=== PATIENT | male | born 1985 | race Caucasian/White ===

== ENCOUNTER 2016-07-28 19:07 | Inpatient (IN) | payer SELFPAY ==
[~2016-07-28] VITALS: Ht 182.9 cm; Wt 84.0 kg
[~2016-07-28 19:07] MED LIST: BUPR-197 PO; CHLO10 PO; HYDR-3535 PO; LEXA20TA PO; TRAZ100 PO; TRAZ100T4 PO; ZYPR10TA9 PO
[2016-07-28] MEDS ORDERED: SODIUM CHLOR 0.9% 1000 ML INJ 1,000 ML IV SCH (19:14)
[2016-07-28 19:15] VITALS: BP 122/68; PULSE 86; TEMP 97.9; O2SAT 100
[2016-07-28] MEDS ORDERED: LORazepam 2 MG/ML VIAL IV PUSH ONE ×2 (19:15→21:45)
[2016-07-28 19:22] VITALS: O2SAT 98
--- NOTE | 2016-07-28 19:39 | RADRPT ---
EXAM DATE/TIME: 07/28/2016 19:30 [place] COMPARISON: No previous studies available for comparison. INDICATIONS : Chest pain and shortness of breath. MEDICAL HISTORY : None. SURGICAL HISTORY : None. ENCOUNTER: Initial ACUITY: 1 day PAIN SCORE: 3/10 LOCATION: Bilateral chest FINDINGS: A single view of the chest demonstrates the lungs to be symmetrically aerated without evidence of mas s, infiltrate or effusion. The cardiomediastinal contours are unremarkable. Osseous structures are intact. CONCLUSION: No evidence of acute cardiopulmonary disease. Miguel Noe MD on July 28, 2016 at 19:37 Board Certified Radiologist. This report was verified electronically.
[2016-07-28 19:43] LABS: AUTOMATED NEUTROPHIL # 5.7 TH/MM3 (1.8-7.7); BASOPHIL % 0.4 % (0.0-2.0); HEMO FLAGS DIFF FINAL; LYMPH % 22.8 % (9.0-44.0); LYMPHOCYTE # 1.9 TH/MM3 (1.0-4.8); MEAN CELL VOLUME 91.7 FL (80.0-100.0); MEAN CORPUSCULAR HEMOGLOBIN 31.8 PG (27.0-34.0); MEAN CORPUSCULAR HGB CONC 34.7 % (32.0-36.0); MONO % 8.8 % (0.0-8.0); PLATELET COUNT 238 TH/MM3 (150-450); RED BLOOD COUNT 4.48 MIL/MM3 (4.50-5.90); RED CELL DISTRIBUTION WIDTH 12.8 % (11.6-17.2); WHITE BLOOD COUNT 8.4 TH/MM3 (4.0-11.0)
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
[2016-07-28 20:09] LABS: ANION GAP 10 MEQ/L (5-15); BICARBONATE 23.3 MEQ/L (21.0-32.0); BLOOD UREA NITROGEN 16 MG/DL (7-18); CHLORIDE 106 MEQ/L (98-107); GLOMERULAR FILTRATION RATE 71 ML/MIN (>89); MAGNESIUM 2.2 MG/DL (1.5-2.5); POTASSIUM 3.8 MEQ/L (3.5-5.1); SODIUM (NA) 139 MEQ/L (136-145)
[2016-07-28 20:14] LABS: CREATINE KINASE 196 U/L (39-308)
[2016-07-28 20:41] LABS: CKMB 1.1 NG/ML (0.5-3.6)
[2016-07-28 21:25] LABS: AMPHETAMINE, URINE NEG (NEG); BARBITURATES, URINE NEG (NEG); COCAINE, URINE POS (NEG)
[2016-07-29] MEDS ORDERED: LORazepam 2 MG/ML VIAL IV PUSH ONE (02:00)
[2016-07-29 08:30] VITALS: BP 113/56; PULSE 52; RESP 16; O2SAT 97
--- NOTE | 2016-07-29 10:07 | EKG ---
Date Performed: 07/28/2016 Time Performed: 19:23:40 PTAGE: 30 years EKG: Sinus rhythm NORMAL ECG PREVIOUS TRACING : 07/28/2016 19.22 DOCTOR: Grace Howell Interpretating Date/Time 07/31/2016 09:08:59
[2016-07-29 11:25] VITALS: BP 110/82; PULSE 58; RESP 18; TEMP 99; O2SAT 99
--- NOTE | 2016-07-29 13:16 | MB ---
cc: WILLIAM LOUIE DATE OF CONSULTATION: 07/29/2016 PHYSICIAN REQUESTING CONSULTATION Emergency Department. REASON FOR CONSULTATION Voluntary psychiatric evaluation. HISTORY OF PRESENT ILLNESS Mr. Sullivan is a 30-year-old male with a history of substance use issues who presented initially to the ED for a complaint of palpitations. He subsequently told the ED provider that he was feeling suicidal. Reviewing the electronic medical record, I see the patient has had multiple ED visits and psychiatric admissions for substance use and its sequelae. He does have a history of withdrawal seizures. The patient seen and examined. Chart reviewed. Case discussed with nursing staff. On my examination today, the patient tells me "I was on drugs and kind of down and out." He is interested in obtaining detoxification services. He does not initially verbalize suicidal ideation but when I explained to him that the detox unit at [facility] was full last time we checked, he says that if we released him from the ED then he would be "worried about relapse, feeling hopeless and suicidal." He cannot generate any real depressive or hypomanic/manic symptoms. No audiovisual hallucinations. No evident delusions. The remainder of the psychiatric ROS is negative. PAST PSYCHIATRIC HISTORY The patient is not currently following on an outpatient basis with psychiatry. He does have a lengthy history of substance use issues as I said. His most recent psychiatric admission was reportedly here and that would have been under Dr. Roger in June of 2015. He reports that he has been nonadherent with all prescribed psychotropics recently. The patient does report a history of cutting as a suicide attempt. FAMILY HISTORY The patient reports some sort of mental illness history on the mother's side of his family but he is not sure of what. CHEMICAL DEPENDENCY HISTORY The patient reports that he relapsed to cocaine, heroin and alcohol about three months ago. He reports that he uses a half-a-gram of heroin IV daily. He also drinks a 12-pack of alcohol. His longest sober time is a year but this was in some sort of monitored setting, he declines to tell me exactly what. SOCIAL HISTORY The patient reports that he lives with a family member but he says it is complicated. He denies any active illegal issues. He denies any history of violent crime. He is single and has a son. Denies any history. He has some college education. He is not working and has no income. He denies any access to guns or firearms. PAST MEDICAL HISTORY See electronic medical record. REVIEW OF SYSTEMS Besides some withdrawal symptoms, no reported physical complaints. PHYSICAL EXAMINATION VITAL SIGNS: Temperature 97.9, pulse 52, respirations 16, blood pressure 113/56, pulse oximetry 97% on room air. Physical examination completed by ED provider. On my examination today, the patient is a little clammy but otherwise in no acute physical distress. No other signs of withdrawal noted. LABORATORIES Laboratories reviewed: Urine toxicology was positive for opiates and cocaine. No alcohol though. MENTAL STATUS EXAMINATION The patient is in a hospital gown. He is awake and alert and oriented x3. He is well-groomed and appears to be attending to basic needs. No abnormal motor movements noted. Speech is within normal limits for rate, tone and volume. Language and fund of knowledge seem average. Mood is reportedly dysphoric and affect is blunted. Thought process linear. No loosening of associations. No evident delusions. Denies audiovisual hallucinations. Articulates suicidal ideation in the context of a discharge discussion if his demands for detoxification services are not honored. No homicidal ideation. Insight and judgment are fair. ASSESSMENT AND PLAN 1. Polysubstance dependence, F19.20. 2. Antisocial personality traits and likely malingering suicidal ideation in order to obtain detoxification services. This is a 30-year-old male with psychiatric history as detailed above who is presently voluntarily presenting to the ED and requesting detox. He is threatening suicidal ideation if he does not get detox. The patient is otherwise attending to his basic needs and there is no evidence of any unstable mood, anxiety or psychotic disorder in this patient at this time. I strongly suspect that the patient is malingering suicidal ideation in order to insure that he obtains detoxification services. He does have some antisocial personality traits. The patient would not benefit from a general inpatient psychiatric admission at this time and so I will not plan on admitting him to the inpatient psychiatric unit here. He does not meet Bourne Act criteria as his issues seem to be substance related. We will endeavor to get the patient to a detoxification facility, but as I said there are currently no beds. If at some point the patient should wish to leave the emergency department and is denying suicidal or homicidal ideation and contracts for safety, I would have no objection to his departing. Case discussed with RN. Thank very much for this consultation. William Louie DC/JIM /9:03 AM /12:42 PM KEIKO
[2016-07-29] MEDS ORDERED: ONDANSETRON ODT 4 MG TAB PO ONE (13:45)
[2016-07-29] MEDS ORDERED: LORazepam 2 MG/ML VIAL IV PUSH PRN ×3 (13:45)
[2016-07-29] MEDS ORDERED: LORazepam 2 MG TAB PO PRN (13:45)
[2016-07-29] MEDS ORDERED: LORazepam 2 MG/ML VIAL IM ONE (13:45)
--- NOTE | 2016-07-29 14:00 | PD ---
Data Data Last Documented VS Vital Signs Date Time Temp Pulse Resp B/P Pulse Ox O2 Delivery O2 Flow Rate FiO2 07/29/16 11:25 99.0 58 18 110/82 99 Room Air Orders Electrocardiogram (07/28/16 19:14) Basic Metabolic Panel (Bmp) (07/28/16 19:14) Ckmb (Isoenzyme) Profile (07/28/16 19:14) Complete Blood Count With Diff (07/28/16 19:14) Magnesium (Mg) (07/28/16 19:14) Troponin I (07/28/16 19:14) Chest, Single Ap (07/28/16 19:14) Ecg Monitoring (07/28/16 19:14) Bilateral Bp Monitoring (07/28/16 19:14) Iv Access Insert/Monitor (07/28/16 19:14) Oximetry (07/28/16 19:14) Oxygen Administration (07/28/16 19:14) Sodium Chlor 0.9% 1000 Ml Inj (Ns 1000 M (07/28/16 19:14) ^ Sitter (07/28/16 19:14) Lorazepam Inj (Ativan Inj) (07/28/16 19:15) Drug Screen, Random Urine (07/28/16 19:14) Alcohol (Ethanol) (07/28/16 19:14) Psych Screen (07/28/16 19:17) CKMB (07/28/16 18:20) CKMB% (07/28/16 18:20) Lorazepam Inj (Ativan Inj) (07/28/16 21:45) Lorazepam Inj (Ativan Inj) (07/29/16 02:00) Lorazepam Inj (Ativan Inj) (07/29/16 13:45) Ondansetron Odt (Zofran Odt) (07/29/16 13:45) Alcohol Withdrawal Asmt-Ciwa ONCE (07/29/16 13:43) Lorazepam (Ativan) (07/29/16 13:45) Lorazepam Inj (Ativan Inj) (07/29/16 13:45) Lorazepam (Ativan) (07/29/16 13:45) Lorazepam Inj (Ativan Inj) (07/29/16 13:45) Lorazepam Inj (Ativan Inj) (07/29/16 13:45) Lorazepam Inj (Ativan Inj) (07/29/16 13:45) Diet Regular Basic (07/29/16 Dinner) Labs Laboratory Tests Test 07/28/16 07/28/16 18:20 21:00 White Blood Count 8.4 TH/MM3 Red Blood Count 4.48 MIL/MM3 Hemoglobin 14.3 GM/DL Hematocrit 41.0 % Mean Corpuscular Volume 91.7 FL Mean Corpuscular Hemoglobin 31.8 PG Mean Corpuscular Hemoglobin 34.7 % Concent Red Cell Distribution Width 12.8 % Platelet Count 238 TH/MM3 Mean Platelet Volume 7.8 FL Neutrophils (%) (Auto) 68.0 % Lymphocytes (%) (Auto) 22.8 % Monocytes (%) (Auto) 8.8 % Eosinophils (%) (Auto) 0.0 % Basophils (%) (Auto) 0.4 % Neutrophils # (Auto) 5.7 TH/MM3 Lymphocytes # (Auto) 1.9 TH/MM3 Monocytes # (Auto) 0.7 TH/MM3 Eosinophils # (Auto) 0.0 TH/MM3 Basophils # (Auto) 0.0 TH/MM3 CBC Comment DIFF FINAL Differential Comment Sodium Level 139 MEQ/L Potassium Level 3.8 MEQ/L Chloride Level 106 MEQ/L Carbon Dioxide Level 23.3 MEQ/L Anion Gap 10 MEQ/L Blood Urea Nitrogen 16 MG/DL Creatinine 1.21 MG/DL Estimat Glomerular Filtration 71 ML/MIN Rate Random Glucose 73 MG/DL Calcium Level 8.3 MG/DL Magnesium Level 2.2 MG/DL Total Creatine Kinase 196 U/L Creatine Kinase MB 1.1 NG/ML Troponin I LESS THAN 0.02 NG/ML Ethyl Alcohol Level LESS THAN 3 MG/DL Urine Opiates Screen POS Urine Barbiturates Screen NEG Urine Amphetamines Screen NEG Urine Benzodiazepines Screen NEG Urine Cocaine Screen POS Urine Cannabinoids Screen NEG MDM Supervised Visit with BAUDILIO: No Narrative Course Is SEC the patient by the psychiatric screener, apparently the patient has been expecting some mild withdrawal symptoms including tremor and some mild anxiety. No agitation altered mental status. He was seen overnight for chest pain in the setting of cocaine and heroin use. He is waiting for psychiatric screener for suicidal ideation. Patient on my evaluation appears anxious he does have some mild tremor no delirium no altered mental status. His chest pain is currently resolved, heart and lungs are normal. Patient was given Ativan IM, [place] protocol is been ordered. He was counseled on need for cessation of cocaine and heroin use as this may cause serious cardiac complications as well as other adverse health effects in the future. Patient verbalized understanding and agreement. Remains medically stable for psychiatric evaluation and disposition per Diagnosis Primary Impression: Polysubstance dependence Additional Impression: Suicidal ideations Scripts No Active Prescriptions or Reported Meds Condition: Stable Rey Galloway MD July 29, 2016 14:00
[2016-07-29 18:46] VITALS: BP 126/78; PULSE 78
[2016-07-29] MEDS: LORazepam 1 MG TAB PO PRN (20:14)
[2016-07-29 23:07] VITALS: BP 108/65; PULSE 68; RESP 18; O2SAT 97
[2016-07-30] MEDS ORDERED: ONDANSETRON ODT 4 MG TAB PO ONE (01:00)
[2016-07-30] MEDS ORDERED: LORazepam 2 MG/ML VIAL IM ONE (01:00)
[2016-07-30 02:40] VITALS: BP 113/65; PULSE 56; RESP 18; O2SAT 97
[2016-07-30] MEDS: LORazepam 1 MG TAB PO PRN (04:27)
[2016-07-30] MEDS ORDERED: LORazepam 2 MG/ML VIAL IM STA (08:23)
[2016-07-30 08:30] VITALS: BP 125/75; PULSE 93; TEMP 99.4
--- NOTE | 2016-07-30 08:38 | PD ---
HPI Chief Complaint: Cardiac Complaint Time Seen by Provider: 13:59 Travel History International Travel<30 days: No Contact w/Intl Traveler<30days: No Traveled to known affect area: No History of Present Illness HPI I was asked to come to [facility] emergently for patient having a seizure. This patient is known to me from yesterday. He was admitted 37 hours ago to the emergency department for chest pain. He does have a history of cocaine and heroin use. Initial troponin EKG and laboratory workups were negative. He was medically cleared for a voluntary psychiatric evaluation. The patient has been in [facility] since that time and apparently has been refused for multiple detoxification facilities secondary to an apparent seizure disorder. Patient does not take any medicines for his seizures. Denies any alcohol use. By the time I arrived in [facility] pod the patient's postictal lying on the floor. His GCS of [id number] and his mental status is rapidly improving. The nursing staff reports approximately 2 minute generalized more tonic than clonic seizure during which time the patient did not wet himself. Patient had Ativan 1 mg IM approximately 4 hours prior to the seizure. PFSH Past Medical History ADD: Yes Anxiety: Yes Depression: Yes Diminished Hearing: No Hypertension: Yes Neurologic: Yes Immunizations Current: Yes Migraines: Yes Social History Alcohol Use: Yes (last drink two days ago ) Tobacco Use: Yes Substance Use: Yes Allergies-Medications (Allergen,Severity, Reaction): Coded Allergies: No Known Allergies (Unverified , 07/28/16) Reported Meds & Prescriptions Reported Meds & Active Scripts Active No Active Prescriptions or Reported Medications Review of Systems Except as stated in HPI: all other systems reviewed are Neg Physical Exam Narrative GENERAL: Well-developed well-nourished postictal. SKIN: Focused skin assessment warm/dry. HEAD: Atraumatic. Normocephalic. EYES: Pupils equal and round. No scleral icterus. No injection or drainage. ENT: No nasal bleeding or discharge. Mucous membranes pink and moist. No tongue laceration. NECK: Trachea midline. No JVD. CARDIOVASCULAR: Regular rate and rhythm. No murmur appreciated. RESPIRATORY: No accessory muscle use. Clear to auscultation. Breath sounds equal bilaterally. GASTROINTESTINAL: Abdomen soft, non-tender, nondistended. Hepatic and splenic margins not palpable. MUSCULOSKELETAL: No obvious deformities. No clubbing. No cyanosis. No edema. NEUROLOGICAL: Postictal, GCS of 9 as above, rapidly improving mental status. PSYCHIATRIC: Appropriate mood and affect; insight and judgment normal. Data Data Last Documented VS Vital Signs Date Time Temp Pulse Resp B/P Pulse Ox O2 Delivery O2 Flow Rate FiO2 07/30/16 08:51 77 18 99 Room Air 07/30/16 08:50 98.3 129/75 07/30/16 08:30 100 Orders Electrocardiogram (07/28/16 19:14) Basic Metabolic Panel (Bmp) (07/28/16 19:14) Ckmb (Isoenzyme) Profile (07/28/16 19:14) Complete Blood Count With Diff (07/28/16 19:14) Magnesium (Mg) (07/28/16 19:14) Troponin I (07/28/16 19:14) Chest, Single Ap (07/28/16 19:14) Ecg Monitoring (07/28/16 19:14) Bilateral Bp Monitoring (07/28/16 19:14) Iv Access Insert/Monitor (07/28/16 19:14) Oximetry (07/28/16 19:14) Oxygen Administration (07/28/16 19:14) Sodium Chlor 0.9% 1000 Ml Inj (Ns 1000 M (07/28/16 19:14) ^ Sitter (07/28/16 19:14) Lorazepam Inj (Ativan Inj) (07/28/16 19:15) Drug Screen, Random Urine (07/28/16 19:14) Alcohol (Ethanol) (07/28/16 19:14) Psych Screen (07/28/16:17) CKMB (07/28/16 18:20) CKMB% (07/28/16 18:20) Lorazepam Inj (Ativan Inj) (07/28/16 21:45) Lorazepam Inj (Ativan Inj) (07/29/16 02:00) Lorazepam Inj (Ativan Inj) (07/29/16 13:45) Ondansetron Odt (Zofran Odt) (07/29/16 13:45) Alcohol Withdrawal Asmt-Ciwa ONCE (07/29/16 13:43) Lorazepam (Ativan) (07/29/16 13:45) Lorazepam Inj (Ativan Inj) (07/29/16 13:45) Lorazepam (Ativan) (07/29/16 13:45) Lorazepam Inj (Ativan Inj) (07/29/16 13:45) Lorazepam Inj (Ativan Inj) (07/29/16 13:45) Lorazepam Inj (Ativan Inj) (07/29/16 13:45) Diet Regular Basic (07/29/16 Dinner) Diet Regular Basic (07/30/16 Breakfast) Ondansetron Odt (Zofran Odt) (07/30/16 01:00) Lorazepam Inj (Ativan Inj) (07/30/16 01:00) Lorazepam Inj (Ativan Inj) (07/30/16 08:23) Complete Blood Count With Diff (07/30/16 08:34) Comprehensive Metabolic Panel (07/30/16 08:34) Magnesium (Mg) (07/30/16 08:34) Prothrombin Time / Inr (Pt) (07/30/16 08:34) Act Partial Throm Time (Ptt) (07/30/16 08:34) Sodium Chloride 0.9% Flush (Ns Flush) (07/30/16 08:45) Ketorolac Inj (Toradol Inj) (07/30/16 09:30) Sodium Chlor 0.9% 1000 Ml Inj (Ns 1000 M (07/30/16 09:45) Admit Order (Ed Use Only) (07/30/16 ) Labs Laboratory Tests Test 07/28/16 07/28/16 07/30/16 07/30/16 18:20 21:00 08:45 08:55 White Blood Count 8.4 TH/MM3 4.7 TH/MM3 Red Blood Count 4.48 MIL/MM3 4.80 MIL/MM3 Hemoglobin 14.3 GM/DL 15.5 GM/DL Hematocrit 41.0 % 44.4 % Mean Corpuscular Volume 91.7 FL 92.4 FL Mean Corpuscular Hemoglobin 31.8 PG 32.2 PG Mean Corpuscular Hemoglobin 34.7 % 34.8 % Concent Red Cell Distribution Width 12.8 % 12.9 % Platelet Count 238 TH/MM3 208 TH/MM3 Mean Platelet Volume 7.8 FL 7.8 FL Neutrophils (%) (Auto) 68.0 % 58.9 % Lymphocytes (%) (Auto) 22.8 % 30.1 % Monocytes (%) (Auto) 8.8 % 9.3 % Eosinophils (%) (Auto) 0.0 % 0.7 % Basophils (%) (Auto) 0.4 % 1.0 % Neutrophils # (Auto) 5.7 TH/MM3 2.8 TH/MM3 Lymphocytes # (Auto) 1.9 TH/MM3 1.4 TH/MM3 Monocytes # (Auto) 0.7 TH/MM3 0.4 TH/MM3 Eosinophils # (Auto) 0.0 TH/MM3 0.0 TH/MM3 Basophils # (Auto) 0.0 TH/MM3 0.0 TH/MM3 CBC Comment DIFF FINAL DIFF FINAL Differential Comment Sodium Level 139 MEQ/L 138 MEQ/L Potassium Level 3.8 MEQ/L 4.2 MEQ/L Chloride Level 106 MEQ/L 102 MEQ/L Carbon Dioxide Level 23.3 MEQ/L 27.5 MEQ/L Anion Gap 10 MEQ/L 9 MEQ/L Blood Urea Nitrogen 16 MG/DL 15 MG/DL Creatinine 1.21 MG/DL 1.41 MG/DL Estimat Glomerular Filtration 71 ML/MIN 60 ML/MIN Rate Random Glucose 73 MG/DL 131 MG/DL Calcium Level 8.3 MG/DL 8.8 MG/DL Magnesium Level 2.2 MG/DL 2.4 MG/DL Total Creatine Kinase 196 U/L Creatine Kinase MB 1.1 NG/ML Troponin I LESS THAN 0.02 NG/ML Ethyl Alcohol Level LESS THAN 3 MG/DL Urine Opiates Screen POS Urine Barbiturates Screen NEG Urine Amphetamines Screen NEG Urine Benzodiazepines Screen NEG Urine Cocaine Screen POS Urine Cannabinoids Screen NEG Total Bilirubin 1.5 MG/DL Aspartate Amino Transf 23 U/L (AST/SGOT) Alanine Aminotransferase 17 U/L (ALT/SGPT) Alkaline Phosphatase 50 U/L Total Protein 7.9 GM/DL Albumin 4.1 GM/DL Prothrombin Time 11.2 SEC Prothromb Time International 1.0 RATIO Ratio Activated Partial 31.3 SEC Thromboplast Time MDM Medical Decision Making Medical Screen Exam Complete: Yes Emergency Medical Condition: Yes Differential Diagnosis Seizure, alcohol withdrawal seizure, substance abuse. Narrative Course Patient is a 30-year-old male who seen by me yesterday for mild withdrawal like symptoms. He does admit to heroin cocaine and alcohol use. He has not had a drink in approximately 48 hours. He had a seizure in J pod while awaiting placement for detoxification. Discussed with the psychiatrist on-call and the patient will be released from his voluntary status and does not meet inpatient psychiatric criteria. He was moved back into the medical area of the emergency department. He had rapidly returned to GCS of 15 and began complaining of generalized muscle aches for which she was given Toradol.. He states he has seizures only when he is withdrawing from his substances. He was given Ativan 2 mg IM prior to moving over to the medical part of the emergency department. Repeat labs were sent and the patient does have an increasing creatinine he was 1.2 on admission and is now 1.4. Normal saline bolus was given. Patient was discussed with Dr. Johnson for observation for probable alcohol withdrawal seizures. There is no indication for imaging of his head or neck at this time. Diagnosis Primary Impression: Polysubstance dependence Additional Impression: Suicidal ideations Admitting Information Admitting Physician Requests: Observation Scripts No Active Prescriptions or Reported Meds Condition: Stable Rey Galloway MD July 30, 2016 08:37
[2016-07-30] MEDS ORDERED: SODIUM CHLORIDE 0.9% FLUSH 10 ML FLUSH IVF PRN (08:45)
[2016-07-30 08:50] VITALS: BP 129/75; PULSE 77; RESP 18; TEMP 98.3; O2SAT 99
[2016-07-30 09:10] LABS: AUTOMATED NEUTROPHIL # 2.8 TH/MM3 (1.8-7.7); EOSINOPHIL % 0.7 % (0.0-4.0); HEMATOCRIT 44.4 % (39.0-51.0); HEMO FLAGS DIFF FINAL; LYMPH % 30.1 % (9.0-44.0); LYMPHOCYTE # 1.4 TH/MM3 (1.0-4.8); MEAN CELL VOLUME 92.4 FL (80.0-100.0); MEAN CORPUSCULAR HEMOGLOBIN 32.2 PG (27.0-34.0); MEAN CORPUSCULAR HGB CONC 34.8 % (32.0-36.0); MONO % 9.3 % (0.0-8.0); NEUT % 58.9 % (16.0-70.0); PLATELET COUNT 208 TH/MM3 (150-450); RED CELL DISTRIBUTION WIDTH 12.9 % (11.6-17.2); WHITE BLOOD COUNT 4.7 TH/MM3 (4.0-11.0)
[2016-07-30 09:23] LABS: APTT (PATIENT) 31.3 SEC (24.3-30.1); PROTHROMBIN TIME - PATIENT 11.2 SEC (9.8-11.6)
[2016-07-30] MEDS ORDERED: KETOROLAC TROMETHAMINE 30 MG/ML (IVP) VIAL IV PUSH ONE (09:30)
[2016-07-30 09:36] LABS: ALKALINE PHOSPHATASE 50 U/L (45-117); ALT (GPT) 17 U/L (12-78); ANION GAP 9 MEQ/L (5-15); AST (GOT) 23 U/L (15-37); BICARBONATE 27.5 MEQ/L (21.0-32.0); BLOOD UREA NITROGEN 15 MG/DL (7-18); CHLORIDE 102 MEQ/L (98-107); GLOMERULAR FILTRATION RATE 60 ML/MIN (>89); MAGNESIUM 2.4 MG/DL (1.5-2.5); POTASSIUM 4.2 MEQ/L (3.5-5.1); SODIUM (NA) 138 MEQ/L (136-145); TOTAL BILIRUBIN ADULT 1.5 MG/DL (0.2-1.0)
[2016-07-30] MEDS ORDERED: SODIUM CHLOR 0.9% 1000 ML INJ 1,000 ML IV ONE (09:45)
[2016-07-30] MEDS: LORazepam 2 MG/ML VIAL IV PUSH PRN ×2 (10:00→12:00)
[2016-07-30] MEDS ORDERED: SODIUM CHLOR 0.9% 1000 ML INJ 1,000 ML IV SCH (10:57)
[2016-07-30] MEDS ORDERED: SODIUM CHLORIDE 0.9% FLUSH 10 ML FLUSH IV FLUSH PRN (11:00)
[2016-07-30] MEDS ORDERED: cloNIDine HCL 0.1 MG TAB PO PRN (11:00)
[2016-07-30] MEDS ORDERED: ONDANSETRON HCL 4 MG/2 ML VIAL IV PUSH ONE (11:45)
[2016-07-30] MEDS ORDERED: FLUMAZENIL 0.5 MG/5 ML VIAL IV PUSH PRN (12:00)
[2016-07-30] MEDS ORDERED: THIAMINE HCL 100 MG TAB PO SCH (12:00)
[2016-07-30] MEDS ORDERED: ONDANSETRON HCL 4 MG/2 ML VIAL IVP PRN (13:00)
[2016-07-30 13:03] VITALS: BP 132/79; PULSE 79; RESP 24; O2SAT 100
[2016-07-30 13:07] LABS: MAGNESIUM 2.3 MG/DL (1.5-2.5)
--- NOTE | 2016-07-30 14:43 | HHI.HP ---
[facility] No Primary Care Physician Admission Diagnosis Seizure, likely alcohol withdrawal seizure. Diagnoses: Chief Complaint: Seizure Travel History International Travel<30 Days: No Contact w/Intl Traveler <30 Da: No Traveled to Known Affected Are: No History of Present Illness 30-year-old male with a past medical history of mood and personality disorders, polysubstance abuse who is admitted for possible seizure. The patient has been in ED psych holding since 07/28 awaiting transfer for voluntary detox. Apparently the patient had expressed suicidal ideations if detox arrangements were not made for him. He was seen by psychiatry who recommended that the patient did not meet criteria for inpatient psychiatry and could leave voluntarily, however did recommend that after severe made for transfer to detox facility. Per ED report, this morning the patient had "approximately 2 minute generalized more tonic than clonic seizure during which time the patient did not wet himself". He has received multiple doses of IV Ativan today. Currently the patient is awake and alert and complaining of nausea and dry heaving. He is having right-sided abdominal cramping that is worse when he dry heaves. He states that he quit alcohol and drug use yesterday prior to the ED presentation. The patient states that he had developed tremors today. The patient does have a past history of admission for alcohol withdrawal seizures. Review of Systems Except as stated in HPI: all other systems reviewed are Neg Past Family Social History Past Medical History Mood and personality disorder Polysubstance abuse Past Surgical History None Reported Medications None per patient Allergies: Coded Allergies: No Known Allergies (Unverified , 07/28/16) Active Ordered Medications Current Medications Medications (Trade) Dose Ordered Sig/Jossy Route Start Time Stop Time Status Last Admin (Ativan) 1 mg Q4H PRN PO 07/29/16 13:45 07/30/16 04:27 (Ativan Inj) 1 mg Q4H PRN IV PUSH 07/29/16 13:45 07/30/16 09:54 (Ativan) 2 mg Q2H PRN PO 07/29/16 13:45 (Ativan Inj) 2 mg Q2H PRN IV PUSH 07/29/16 13:45 (Ativan Inj) 2 mg Q1H PRN IV PUSH 07/29/16 13:45 07/30/16 12:00 (Ativan Inj) 2 mg Q15M PRN IV PUSH 07/29/16 13:45 (NS Flush) 2 ml UNSCH PRN IVF 07/30/16 08:45 (NS Flush) 2 ml UNSCH PRN IV FLUSH 07/30/16 11:00 Sodium Chloride 2 ml 2 ml BID IV FLUSH 07/30/16 21:00 (NS 1000 ml Inj) 1,000 ml @ 100 mls/hr Q10H IV 07/30/16 10:57 07/30/16 11:50 (Folate) 1 mg DAILY PO 07/31/16 09:00 08/05/16 08:59 (Vitamin B1) 100 mg DAILY PO 07/30/16 12:00 07/30/16 13:02 (Theragran M Tab) 1 tab DAILY PO 07/31/16 09:00 08/05/16 08:59 (Protonix) 40 mg DAILY PO 07/31/16 09:00 (Catapres) 0.1 mg Q6H PRN PO 07/30/16 11:00 (Romazicon Inj) 0.2 mg Q1M PRN IV PUSH 07/30/16 12:00 Ondansetron HCl 4 mg 4 mg Q6H PRN IVP 07/30/16 13:00 07/30/16 14:25 (Sodium Phosphate Inj/NS Inj) 155 ml @ 38.75 mls/ hr ONCE ONCE IV 07/30/16 14:45 07/30/16 18:44 Family History Reviewed, no family history pertinent to current chief complaint Social History Tobacco use Drinks about a 12 pack of beer daily Does admit to IVDA, heroin, cocaine use Physical Exam Vital Signs Vital Signs Date Time Temp Pulse Resp B/P Pulse Ox O2 Delivery O2 Flow Rate FiO2 07/30/16 13:03 79 24 132/79 100 Room Air 07/30/16 08:51 77 18 99 Room Air 07/30/16 08:50 98.3 77 18 129/75 99 Room Air 07/30/16 08:30 99.4 93 125/75 100 07/30/16 02:40 56 18 113/65 97 07/29/16 23:07 68 18 108/65 97 07/29/16 18:46 78 126/78 Physical Exam GENERAL: Well-developed well-nourished. In no acute distress. SKIN: Warm and dry. No lesions noted. HEENT: Normocephalic. Pupils dilated, reactive to light. Mucous membranes pink and moist. CARDIOVASCULAR: Regular rate and rhythm. No murmur appreciated. RESPIRATORY: No accessory muscle use. Clear to auscultation. Breath sounds equal bilaterally. GASTROINTESTINAL: Abdomen soft, non-tender, nondistended. Bowel sounds x4. MUSCULOSKELETAL: No obvious deformities. No clubbing or cyanosis. No edema. NEUROLOGICAL: Awake and alert. No focal neurological deficits. Moves upper and lower extremities spontaneously. Normal speech. PSYCHIATRIC: Appropriate mood and affect; insight and judgment normal. Laboratory Laboratory Tests Test 07/30/16 07/30/16 07/30/16 08:45 08:55 10:40 Sodium Level 138 Potassium Level 4.2 Chloride Level 102 Carbon Dioxide Level 27.5 Anion Gap 9 Blood Urea Nitrogen 15 Creatinine 1.41 Estimat Glomerular Filtration 60 Rate Random Glucose 131 Calcium Level 8.8 Magnesium Level 2.4 2.3 Total Bilirubin 1.5 Aspartate Amino Transf 23 (AST/SGOT) Alanine Aminotransferase 17 (ALT/SGPT) Alkaline Phosphatase 50 Total Protein 7.9 Albumin 4.1 White Blood Count 4.7 Red Blood Count 4.80 Hemoglobin 15.5 Hematocrit 44.4 Mean Corpuscular Volume 92.4 Mean Corpuscular Hemoglobin 32.2 Mean Corpuscular Hemoglobin 34.8 Concent Red Cell Distribution Width 12.9 Platelet Count 208 Mean Platelet Volume 7.8 Neutrophils (%) (Auto) 58.9 Lymphocytes (%) (Auto) 30.1 Monocytes (%) (Auto) 9.3 Eosinophils (%) (Auto) 0.7 Basophils (%) (Auto) 1.0 Neutrophils # (Auto) 2.8 Lymphocytes # (Auto) 1.4 Monocytes # (Auto) 0.4 Eosinophils # (Auto) 0.0 Basophils # (Auto) 0.0 CBC Comment DIFF FINAL Differential Comment Prothrombin Time 11.2 Prothromb Time International 1.0 Ratio Activated Partial 31.3 Thromboplast Time Phosphorus Level 2.2 Lipase 143 Result Diagram: 07/30/16 0855 07/30/16 0845 Imaging Last Impressions Chest X-Ray 07/28/16 3074 Signed Impressions: Service Date/Time: Thursday, July 28, 2016 19:30 - CONCLUSION: No evidence of acute cardiopulmonary disease. Miguel Noe MD Assessment and Plan Assessment and Plan 30-year-old male with a past medical history of mood and personality disorders, polysubstance abuse who is admitted for possible seizure Possible alcohol withdrawal seizure: Patient reports he stopped drinking the day he presented to the ED, EtOH level was less than 3 on 07/28. CIWA protocol. Rally pack. IVF. Neuro checks. Seizure precautions. Replace electrolytes as needed. Antiemetics as needed. ARNULFO: Creatinine 1.14, baseline appears to be around 1. IVF. Follow-up BMP. Elevated bilirubin: Likely secondary to alcohol abuse. Transaminases within normal limits. Follow-up hepatic function panel tomorrow. Polysubstance abuse: With alcohol, tobacco, heroin, cocaine. Drug screen positive for opiates and cocaine. Patient counseled on cessation. Will have case management attempt to transfer to detox at discharge. Supportive care. Antisocial personality traits: S/P psych eval. Psych recommendation was for detox. Psych believes previous SI was substance related. DVT prophylaxis: SCDs GI prophylaxis: PPI Written by Poncho Thorne, acting as scribe for Dr. Johnson on 07/30/16 at 14:43. This note was transcribed by soledad DANIELS. I, Dr. Vani Johnson personally performed the history, physical exam, and medical decision making; and confirmed the accuracy of the information in the transcribed note. Authenticated by Dr. Vani Johnson on 07/30/16 at 14:43. Note: I have been notified by the nurse patient wants to live AMA. He says she wants pain meds and not ativan. Patient left AMA. Discussed Condition With Patient, ED staff Poncho Thorne July 30, 2016 14:43 Vani Johnson MD July 30, 2016 15:46
[2016-07-30] MEDS ORDERED: SODIUM PHOSPHATE INJ 15 MMOL in SODIUM CHLORIDE 0.9% INJ 150 ML IV ONE (14:45)
--- NOTE | 2016-07-30 18:42 | MG ---
cc: LIU ARZOLA Lab No: [id number] Date: Age: 30 Sex: M Race: HISTORY: A 30-year-old. Hyperventilation not performed. Given Ativan, cocaine, Toradol. Withdrawal symptoms. DESCRIPTION OF THE RECORDING Diffuse beta and alpha rhythms are seen. The recording overall is synchronous and symmetric. I do not see any epileptiform or seizure activity. Some movement artifact is noted. Photic stimulation was performed with some symmetric posterior driving. He had some harmonics. No epileptiform or seizure activity is noted. Hyperventilation was not performed. IMPRESSION: Normal EEG. No evidence for focal or diffuse abnormality. MD YEE Brian/INDIRA /6:24 PM /6:40 PM
[2016-07-30] MEDS ORDERED: SODIUM CHLORIDE 0.9% FLUSH 10 ML FLUSH IV FLUSH SCH (21:00)
[2016-07-31] MEDS ORDERED: MULTIVITAMINS/MINERALS THERAPEUTIC TAB PO SCH (09:00)
[2016-07-31] MEDS ORDERED: FOLIC ACID 1 MG TAB PO SCH (09:00)
[2016-07-31] MEDS ORDERED: PANTOPRAZOLE SOD 40 MG DELAYED RELEASE TAB PO SCH (09:00)
== END 2016-07-30 15:20 | disposition left against medical advice (07) | DRG 101 ==
LOC: NEPE 19:07 → NEDA 07-30 10:31 → OBSVTOIN 07-30 12:46
PROVIDERS: ADMIT Hospitalist; ATTEND Hospitalist
DX: G40.89 Other seizures (principal); N17.9 Acute kidney failure, unspecified; R45.851 Suicidal ideations; R17 Unspecified jaundice; F14.20 Cocaine dependence, uncomplicated; F11.20 Opioid dependence, uncomplicated; F10.239 Alcohol dependence with withdrawal, unspecified; F41.9 Anxiety disorder, unspecified; F32.9 Major depressive disorder, single episode, unspecified; I10 Essential (primary) hypertension; F60.9 Personality disorder, unspecified; F60.2 Antisocial personality disorder; Y90.0 Blood alcohol level of less than 20 mg/100 ml; Z72.0 Tobacco use; Z81.8 Family history of other mental and behavioral disorders; Z76.5 Malingerer [conscious simulation]
CPT/HCPCS: 71010; 80048; 80053; 80307; 82550; 82552; 83690; 83735; 84100; 84484; 85025; 85610; 85730; 93005; 95819; 96361; 96372; 96374; 96375; 96376; J1885; J2060; J2405; J7030

== ENCOUNTER 2016-07-30 21:14 | Inpatient (IN) | payer SELFPAY ==
[~2016-07-30] VITALS: Ht 172.7 cm; Wt 70.0 kg
[2016-07-30 21:16] VITALS: BP 125/85; PULSE 88; RESP 18; TEMP 98.5; O2SAT 96
[2016-07-31] MEDS ORDERED: SODIUM CHLOR 0.9% 1000 ML INJ 1,000 ML IV ONE ×2 (01:00→02:00)
[2016-07-31 01:10] LABS: AUTOMATED NEUTROPHIL # 5.8 TH/MM3 (1.8-7.7); BASOPHIL # 0.1 TH/MM3 (0-0.2); BASOPHIL % 0.9 % (0.0-2.0); EOSINOPHIL % 0.2 % (0.0-4.0); HEMATOCRIT 42.1 % (39.0-51.0); HEMO FLAGS DIFF FINAL; LYMPH % 24.2 % (9.0-44.0); LYMPHOCYTE # 2.1 TH/MM3 (1.0-4.8); MEAN CELL VOLUME 91.2 FL (80.0-100.0); MEAN CORPUSCULAR HEMOGLOBIN 32.2 PG (27.0-34.0); MEAN CORPUSCULAR HGB CONC 35.3 % (32.0-36.0); MONO % 7.9 % (0.0-8.0); NEUT % 66.8 % (16.0-70.0); PLATELET COUNT 230 TH/MM3 (150-450); RED BLOOD COUNT 4.61 MIL/MM3 (4.50-5.90); RED CELL DISTRIBUTION WIDTH 12.6 % (11.6-17.2); WHITE BLOOD COUNT 8.7 TH/MM3 (4.0-11.0)
[2016-07-31 01:18] LABS: BLOOD, URINE NEG (NEG); COMMENT (UR) CULT NOT INDICATED; CULTURE IF INDICATED CULT NOT INDICATED; GLUCOSE,URINE NEG (NEG); KETONE, URINE NEG (NEG); MUCUS URINE FEW /lpf (OCC); NITRITE,URINE NEG (NEG); PH, URINE 5.5 (5.0-8.5); URINE COLOR YELLOW (YELLW/STRAW)
[2016-07-31 01:22] LABS: AMPHETAMINE, URINE NEG (NEG); BARBITURATES, URINE NEG (NEG); COCAINE, URINE POS (NEG)
[2016-07-31 01:34] LABS: ALKALINE PHOSPHATASE 51 U/L (45-117); TOTAL BILIRUBIN ADULT 1.3 MG/DL (0.2-1.0)
[2016-07-31 01:38] LABS: ALT (GPT) 20 U/L (12-78); ANION GAP 5 MEQ/L (5-15); AST (GOT) 30 U/L (15-37); BICARBONATE 29.8 MEQ/L (21.0-32.0); BLOOD UREA NITROGEN 12 MG/DL (7-18); CHLORIDE 104 MEQ/L (98-107); GLOMERULAR FILTRATION RATE 62 ML/MIN (>89); MAGNESIUM 2.3 MG/DL (1.5-2.5); POTASSIUM 3.7 MEQ/L (3.5-5.1); SODIUM (NA) 139 MEQ/L (136-145)
[2016-07-31 01:40] LABS: ACETAMINOPHEN LESS THAN 2.0 MCG/ML (10.0-30.0)
[2016-07-31] MEDS ORDERED: LORazepam 2 MG/ML VIAL IV PUSH ONE ×2 (01:45→02:00)
--- NOTE | 2016-07-31 01:58 | PD ---
HPI Chief Complaint: Medical Clearance Time Seen by Provider: 00:45 Travel History International Travel<30 days: No Contact w/Intl Traveler<30days: No Traveled to known affect area: No History of Present Illness HPI The patient is a 30 year old male who presents to the [facility] emergency department with a history of polysubstance abuse who presents with nausea, vomiting, and diarrhea after leaving AGAINST MEDICAL ADVICE from the hospital on July 30. The patient was admitted to the hospital related to polysubstance abuse and seizure activity. The patient reports that he had been clean and sober for a year up until 3 months ago when he relapsed. The patient reports that he has been heavily using cocaine and alcohol. He reports that he is also been lightly using some heroin. The patient reports that over the last day he' s had nausea and vomiting 4, diarrhea 2. He reports having generalized abdominal cramping and spasms. His last seizure was earlier this morning. The patient reports that he left AGAINST MEDICAL ADVICE as he was extremely agitated and uncomfortable. He reports that he tried to drink a beer at home to help with the symptoms, however he quickly vomited again at home. The only other thing that he is used today has been marijuana. The patient reports having diaphoresis. The patient denies any recent fevers, cough, congestion, neck pain, chest pain, shortness of breath, urinary symptoms, or other neurologic symptoms. The patient denies having a history of epilepsy. He reports that he did have a history of seizure activity related to polysubstance abuse approximately a year ago. [facility] Past Medical History Narrative Medical The patient's past medical history is significant for mood disorder, personality disorder, polysubstance abuse, history of alcohol related withdrawal seizures ADD: Yes Anxiety: Yes Depression: Yes Diminished Hearing: No Hypertension: Yes Neurologic: Yes Immunizations Current: Yes Migraines: Yes ?: Not Past Surgical History Narrative Surgical The patient's past surgical history is reportedly none. Social History Alcohol Use: Yes (last drink two days ago ) Tobacco Use: Yes Substance Use: Yes Allergies-Medications (Allergen,Severity, Reaction): Coded Allergies: No Known Allergies (Unverified , 07/30/16) Reported Meds & Prescriptions Reported Meds & Active Scripts Active No Active Prescriptions or Reported Medications Review of Systems Except as stated in HPI: all other systems reviewed are Neg General / Constitutional: No: Fever Eyes: No: Visual changes HENT: No: Headaches Cardiovascular: Positive: Diaphoresis, No: Chest Pain or Discomfort Respiratory: No: Shortness of Breath Gastrointestinal: Positive: Nausea, Vomiting, Diarrhea, Abdominal Pain, Changes in Bowel Habits, No: Hematemesis, Hematochezia, Constipation, Indigestion, Loss of Appetite Genitourinary: No: Dysuria Musculoskeletal: No: Pain Skin: No Rash Neurologic: Positive: Seizures, No: Weakness, Focal Abnormalities, Change in Mentation, Slurred Speech, Sensory Disturbance Psychiatric: Positive: Anxiety, Mood Disorder, Substance Abuse, No: Depression , Suicidal Ideations Endocrine: No: Polydipsia Hematologic/Lymphatic: No: Easy Bruising Physical Exam Narrative General: The patient is a well-developed well-nourished male, who is uncomfortable appearing on examination, tremulous, anxious appearing. Head and Neck exam: Head is normocephalic atraumatic. Eyes: EOMI, pupils are equal round and reactive to light. Nose: Midline septum with pink mucous membranes Mouth: Dentition unremarkable. Moist mucus membranes. Posterior oropharynx is not erythematous. No tonsillar hypertrophy. Uvula midline. Airway patent. Neck: No palpable lymphadenopathy. No nuchal rigidity. No thyromegaly. Cardiovascular: Regular rate and rhythm without murmurs, gallops, or rubs. Lungs: Clear to auscultation bilaterally. No wheezes, rhonchi, or rales. Abdomen: Soft, with reported generalized discomfort on palpation. No guarding, rebound, or rigidity. Normal bowel sounds are audible. No tenderness on palpation of McBurney's point. Extremities: No clubbing, cyanosis, or edema. 2+ pulses in all 4 extremities. No calf tenderness on palpation. Back: No spinous process tenderness to palpation. No costovertebral angle tenderness to palpation. Neurologic Exam: Cranial nerves 2-12 were intact on exam. Strength is 5/5 in all 4 extremities. No sensory deficits noted. Oriented to person, place, time, and situation. Tremulous on examination. Skin Exam: No rash noted. Intact skin that is warm and dry. Data Data Last Documented VS Vital Signs Date Time Temp Pulse Resp B/P Pulse Ox O2 Delivery O2 Flow Rate FiO2 07/30/16 21:16 98.5 88 18 125/85 96 Room Air Orders Complete Blood Count With Diff (07/31/16 00:47) Comprehensive Metabolic Panel (07/31/16 00:47) Urinalysis - C+S If Indicated (07/31/16 00:47) Magnesium (Mg) (07/31/16 00:47) Iv Access Insert/Monitor (07/31/16 00:47) Ecg Monitoring (07/31/16 00:47) Oximetry (07/31/16 00:47) Drug Screen, Random Urine (07/31/16 00:47) Alcohol (Ethanol) (07/31/16 00:47) Salicylates (Aspirin) (07/31/16 00:47) Tylenol (Acetaminophen) (07/31/16 00:47) Sodium Chlor 0.9% 1000 Ml Inj (Ns 1000 M (07/31/16 01:00) Lorazepam Inj (Ativan Inj) (07/31/16 01:45) Sodium Chlor 0.9% 1000 Ml Inj (Ns 1000 M (07/31/16 02:00) Ondansetron Inj (Zofran Inj) (07/31/16 02:00) Thiamine Inj (Thiamine Inj) (07/31/16 02:00) Lorazepam Inj (Ativan Inj) (07/31/16 02:00) Place In Observation (07/31/16 ) Vital Signs (Adult) Q4H (07/31/16 02:20) Activity Oob With Assistance (07/31/16 02:20) Territory Sales Manager Medical / Telemetry .CONTINUOUS (07/31/16 02:20) Diet Regular Basic (07/31/16 Breakfast) Sodium Chloride 0.9% Flush (Ns Flush) (07/31/16 02:30) Sodium Chloride 0.9% Flush (Ns Flush) (07/31/16 09:00) Basic Metabolic Panel (Bmp) (08/01/16 06:00) Complete Blood Count With Diff (08/01/16 06:00) Naloxone Inj (Narcan Inj) (07/31/16 02:30) Alcohol Withdrawal Asmt-Ciwa Q4HX18 (07/31/16 02:22) ^ Seizure Precautions (07/31/16 02:22) Sodium Chloride 0.9% Flush (Ns Flush) (07/31/16 02:30) Sodium Chloride 0.9% Flush (Ns Flush) (07/31/16 09:00) Consult Cm-Etoh Abuse Dc Plan (07/31/16 ) Flumazenil Inj (Romazicon Inj) (07/31/16 02:30) Lorazepam (Ativan) (07/31/16 02:30) Lorazepam Inj (Ativan Inj) (07/31/16 02:30) Lorazepam (Ativan) (07/31/16 02:30) Lorazepam Inj (Ativan Inj) (07/31/16 02:30) Lorazepam Inj (Ativan Inj) (07/31/16 02:30) Lorazepam Inj (Ativan Inj) (07/31/16 02:30) Admit Order (Ed Use Only) (07/31/16 03:25) Labs Laboratory Tests Test 07/31/16 00:59 White Blood Count 8.7 TH/MM3 Red Blood Count 4.61 MIL/MM3 Hemoglobin 14.8 GM/DL Hematocrit 42.1 % Mean Corpuscular Volume 91.2 FL Mean Corpuscular Hemoglobin 32.2 PG Mean Corpuscular Hemoglobin 35.3 % Concent Red Cell Distribution Width 12.6 % Platelet Count 230 TH/MM3 Mean Platelet Volume 8.0 FL Neutrophils (%) (Auto) 66.8 % Lymphocytes (%) (Auto) 24.2 % Monocytes (%) (Auto) 7.9 % Eosinophils (%) (Auto) 0.2 % Basophils (%) (Auto) 0.9 % Neutrophils # (Auto) 5.8 TH/MM3 Lymphocytes # (Auto) 2.1 TH/MM3 Monocytes # (Auto) 0.7 TH/MM3 Eosinophils # (Auto) 0.0 TH/MM3 Basophils # (Auto) 0.1 TH/MM3 CBC Comment DIFF FINAL Differential Comment Urine Color YELLOW Urine Turbidity CLEAR Urine pH 5.5 Urine Specific [place] 1.028 Urine Protein TRACE mg/dL Urine Glucose (UA) NEG mg/dL Urine Ketones NEG mg/dL Urine Occult Blood NEG Urine Nitrite NEG Urine Bilirubin NEG Urine Urobilinogen LESS THAN 2.0 MG/DL Urine Leukocyte Esterase NEG Urine RBC LESS THAN 1 /hpf Urine WBC 1 /hpf Urine Mucus FEW /lpf Microscopic Urinalysis Comment CULT NOT INDICATED Sodium Level 139 MEQ/L Potassium Level 3.7 MEQ/L Chloride Level 104 MEQ/L Carbon Dioxide Level 29.8 MEQ/L Anion Gap 5 MEQ/L Blood Urea Nitrogen 12 MG/DL Creatinine 1.36 MG/DL Estimat Glomerular Filtration 62 ML/MIN Rate Random Glucose 116 MG/DL Calcium Level 8.9 MG/DL Magnesium Level 2.3 MG/DL Total Bilirubin 1.3 MG/DL Aspartate Amino Transf 30 U/L (AST/SGOT) Alanine Aminotransferase 20 U/L (ALT/SGPT) Alkaline Phosphatase 51 U/L Total Protein 8.2 GM/DL Albumin 4.5 GM/DL Salicylates Level LESS THAN 1.7 MG/DL Urine Opiates Screen POS Acetaminophen Level LESS THAN 2.0 MCG/ML Urine Barbiturates Screen NEG Urine Amphetamines Screen NEG Urine Benzodiazepines Screen NEG Urine Cocaine Screen POS Urine Cannabinoids Screen POS Ethyl Alcohol Level LESS THAN 3 MG/DL MDM Medical Decision Making Medical Screen Exam Complete: Yes Emergency Medical Condition: Yes Medical Record Reviewed: Yes Differential Diagnosis Alcohol withdrawal, versus heroin withdrawal, versus polysubstance withdrawal, versus electrolyte abnormalities, versus delirium tremens Narrative Course During the course of the patients emergency department visit, the patients history, examination, and differential diagnosis were reviewed with the patient. The patient had IV access obtained and blood work sent for analysis. The patienton a security monitor with oximetry and blood pressure monitoring. The patient was initially provided normal saline 1 L IV fluid bolus, Ativan 1 mg IV, thiamine 100 mg IV, Zofran 4 mg IV. On reexamination he continued to be tremulous was given a second milligram of Ativan IV. The patients laboratory studies were reviewed and remarkable for a CBC that is within normal limits, CMP is remarkable for creatinine 1.36, glucose 116, total bilirubin 1.3, urinalysis is unremarkable. Urine drug screen is positive for opiates, cocaine, cannabinoids, alcohol level is less than 3, acetaminophen less than 2, salicylate less than 1.7. [facility] was called regarding whether any male beds for detox were available. No male beds were available for detox at 9:30 PM. The patient will be admitted to the hospital for continued treatment of polysubstance abuse with alcohol related detox. The patients results were discussed with the patient, including the plan of care. I explained that further testing and/ or monitoring is indicated based on the patients history, examination, and/ or laboratory findings. Therefore, I recommended admission for additional evaluation. The patient expressed understanding and was agreeable with this plan. The patient was admitted to the hospital in guarded condition and [facility] Physician Communication Physician Communication The patient's case was discussed with Dr. Kruse who did agree to admit the patient for further evaluation and treatment at this time. Diagnosis Primary Impression: Withdrawal symptoms, alcohol Qualified Code: F10.239 - Withdrawal symptoms, alcohol, with unspecified complication Additional Impression: Polysubstance abuse Admitting Information Admitting Physician Requests: Admit Scripts No Active Prescriptions or Reported Meds Maryana Mcintyre MD July 31, 2016 01:58
[2016-07-31] MEDS ORDERED: THIAMINE INJ 100 MG in SODIUM CHLORIDE 0.9% INJ 100 ML IV ONE (02:00)
[2016-07-31] MEDS ORDERED: ONDANSETRON HCL 4 MG/2 ML VIAL IV ONE (02:00)
[2016-07-31] MEDS ORDERED: LORazepam 1 MG TAB PO PRN (02:30)
[2016-07-31] MEDS ORDERED: LORazepam 2 MG/ML VIAL IV PUSH PRN ×4 (02:30)
[2016-07-31] MEDS ORDERED: NALOXONE HCL 0.4 MG/ML AMP IV PRN (02:30)
[2016-07-31] MEDS ORDERED: SODIUM CHLORIDE 0.9% FLUSH 10 ML FLUSH IV FLUSH PRN ×2 (02:30)
[2016-07-31] MEDS ORDERED: LORazepam 2 MG TAB PO PRN (02:30)
[2016-07-31] MEDS ORDERED: FLUMAZENIL 0.5 MG/5 ML VIAL IV PUSH PRN (02:30)
[2016-07-31 03:36] VITALS: BP 112/75; PULSE 60; RESP 15; O2SAT 99
[2016-07-31 03:37] VITALS: RESP 15; O2SAT 99
[2016-07-31 04:20] VITALS: BP 120/83; PULSE 51; RESP 18; TEMP 95.7; O2SAT 98
--- NOTE | 2016-07-31 05:44 | HHI.HP ---
[facility] No Primary Care Physician Admission Diagnosis alcohol withdrawal syndrome Diagnoses: (1) Withdrawal symptoms, alcohol (2) Polysubstance abuse (3) Acute kidney injury Chief Complaint: Wants to get off alcohol and drugs - concerned about a seizure he had yesterday off alcohol Travel History International Travel<30 Days: No Contact w/Intl Traveler <30 Da: No Traveled to Known Affected Are: No History of Present Illness Mr. Sullivan is a pleasant 30 year-old male with a history of polysubstance abuse including alcoholism, mood and personality disorders, and alcohol withdrawal related seizures who presented to the emergency department on 07/30/16 after leaving AGAINST MEDICAL ADVICE earlier in the day. He returned to the hospital complaining of nausea and vomiting accompanied by diarrhea. The patient is seen in his hospital room. He tells me he came to the hospital to get off drugs and alcohol and returned because of nausea and vomiting. He states that he left AGAINST MEDICAL ADVICE and went home to drink. He had 1 alcoholic drink and vomited almost immediately afterwards. He said he had diarrhea, diaphoresis and tremors and became concerned because he had had a seizure in [place] yesterday per patient - Poncho Thorne mentions a more tonic than clonic seizure lasting appx 2 mins reported to him from ER staff in his H&P dated 07/30/16. The patient believes he had urinary incontinence following this but Poncho' note states "the patient did not wet himself"l EEG done yesterday was negative. He reports having approximately one year of sobriety and states he relapsed about 3 months ago. He reports using IV heroin, IV cocaine, and alcohol. He states he can drink a 12 pack a day along with 2 tall malt liquor beers. He states he wants to get sober and go to a sober living facility. He denies any fevers, chills, shortness of breath, chest pain, or syncope. He denies any history of diabetes mellitus, hypertension, heart disease, respiratory disease, liver or kidney problems, thyroid disease, or cancer. He reports having a seizure one year ago during alcohol withdrawal but no other seizure activity in his lifetime. Review of Systems Except as stated in HPI: all other systems reviewed are Neg Past Family Social History Past Medical History Mood disorder Personality disorder Polysubstance abuse History of alcohol withdrawal related seizures . Past Surgical History Denies any surgical procedures . Reported Medications Reported Meds & Active Scripts Active No Active Prescriptions or Reported Medications . Allergies: Coded Allergies: No Known Allergies (Unverified , 07/30/16) Active Ordered Medications Current Medications Sodium Chloride (NS 1000 ml Inj) 1,000 ml @ 1,000 mls/hr Q1H ONCE IV Last administered on 07/31/16 01:19; Start 07/31/16 at 01:00; Stop 07/31/16 at 01:59; Status DC Lorazepam 1 mg 1 mg ONCE ONCE IV PUSH Last administered on 07/31/16 02:23; Start 07/31/16 at 01:45; Stop 07/31/16 at 01:46; Status DC Sodium Chloride (NS 1000 ml Inj) 1,000 ml @ 1,000 mls/hr Q1H ONCE IV Last administered on 07/31/16 02:23; Start 07/31/16 at 02:00; Stop 07/31/16 at 02:59; Status DC Ondansetron HCl 4 mg 4 mg ONCE ONCE IV Last administered on 07/31/16 02:24; Start 07/31/16 at 02:00; Stop 07/31/16 at 02:01; Status DC Thiamine HCl/ Sodium Chloride (Thiamine Inj/NS Inj) 101 ml @ 101 mls/hr ONCE ONCE IV Last administered on 07/31/16 02:24; Start 07/31/16 at 02:00; Stop at 02:59; Status DC Lorazepam (Ativan Inj) 1 mg ONCE ONCE IV PUSH Last administered on 07/31/16 02 :25; Start 07/31/16 at 02:00; Stop 07/31/16 at 02:01; Status DC Sodium Chloride (NS Flush) 2 ml UNSCH PRN IV FLUSH FLUSH AFTER USING IV ACCESS ; Start 07/31/16 at 02:30; Stop 07/31/16 at 02:30; Status DC Sodium Chloride (NS Flush) 2 ml BID IV FLUSH ; Start 07/31/16 at 09:00; Stop 07/31 at 09:00; Status DC Naloxone HCl (Narcan Inj) 0.4 mg UNSCH PRN IV SEE LABEL COMMENTS; Start at 02:30 Sodium Chloride (NS Flush) 2 ml UNSCH PRN IV FLUSH FLUSH AFTER USING IV ACCESS ; Start 07/31/16 at 02:30 Sodium Chloride (NS Flush) 2 ml BID IV FLUSH ; Start 07/31/16 at 09:00 Flumazenil (Romazicon Inj) 0.2 mg Q1M PRN IV PUSH SEE LABEL COMMENTS; Start 07/31/16 at 02:30 Lorazepam (Ativan) 1 mg Q4H PRN PO CIWA 8 - 10; Start 07/31/16 at 02:30 Lorazepam (Ativan Inj) 1 mg Q4H PRN IV PUSH CIWA 8 - 10; Start 07/31/16 at 02:30 Lorazepam (Ativan) 2 mg Q2H PRN PO CIWA 11-14; Start 07/31/16 at 02:30 Lorazepam (Ativan Inj) 2 mg Q2H PRN IV PUSH CIWA 11-14; Start 07/31/16 at 02:30 Lorazepam (Ativan Inj) 2 mg Q1H PRN IV PUSH CIWA 15-20; Start 07/31/16 at 02:30 Lorazepam (Ativan Inj) 2 mg Q15M PRN IV PUSH CIWA > 20; Start 07/31/16 at 02:30 . Family History Alcoholism runs in family . Social History Tobacco: Occasional but not daily use Alcohol: see HPI Illicit Drugs: see HPI . Physical Exam Vital Signs Vital Signs Date Time Temp Pulse Resp B/P Pulse Ox O2 Delivery O2 Flow Rate FiO2 07/31/16 03:37 15 99 Room Air 07/31/16 03:36 60 15 112/75 99 Room Air 07/30/16 21:16 98.5 88 18 125/85 96 Room Air Physical Exam GENERAL: This is a pleasant and cooperative male patient, in no apparent distress. SKIN: No rashes, ecchymoses or lesions. Cool and dry. HEAD: Atraumatic. Normocephalic. EYES: No scleral icterus. No injection or drainage. ENT: Nose without bleeding, purulent drainage. NECK: Trachea midline. No JVD or lymphadenopathy. CARDIOVASCULAR: Regular rate and rhythm without murmurs, gallops, or rubs. RESPIRATORY: Clear to auscultation. Breath sounds equal bilaterally. No wheezes , rales, or rhonchi. GASTROINTESTINAL: Abdomen soft, non-tender, nondistended. No guarding. MUSCULOSKELETAL: Extremities without clubbing, cyanosis, or edema. No calf tenderness. NEUROLOGICAL: Awake and alert. Motor and sensory grossly within normal limits. Normal speech. . Laboratory Laboratory Tests Test 07/31/16 00:59 White Blood Count 8.7 Red Blood Count 4.61 Hemoglobin 14.8 Hematocrit 42.1 Mean Corpuscular Volume 91.2 Mean Corpuscular Hemoglobin 32.2 Mean Corpuscular Hemoglobin 35.3 Concent Red Cell Distribution Width 12.6 Platelet Count 230 Mean Platelet Volume 8.0 Neutrophils (%) (Auto) 66.8 Lymphocytes (%) (Auto) 24.2 Monocytes (%) (Auto) 7.9 Eosinophils (%) (Auto) 0.2 Basophils (%) (Auto) 0.9 Neutrophils # (Auto) 5.8 Lymphocytes # (Auto) 2.1 Monocytes # (Auto) 0.7 Eosinophils # (Auto) 0.0 Basophils # (Auto) 0.1 CBC Comment DIFF FINAL Differential Comment Urine Color YELLOW Urine Turbidity CLEAR Urine pH 5.5 Urine Specific [place] 1.028 Urine Protein TRACE Urine Glucose (UA) NEG Urine Ketones NEG Urine Occult Blood NEG Urine Nitrite NEG Urine Bilirubin NEG Urine Urobilinogen LESS THAN 2.0 Urine Leukocyte Esterase NEG Urine RBC LESS THAN 1 Urine WBC 1 Urine Mucus FEW Microscopic Urinalysis Comment CULT NOT INDICATED Sodium Level 139 Potassium Level 3.7 Chloride Level 104 Carbon Dioxide Level 29.8 Anion Gap 5 Blood Urea Nitrogen 12 Creatinine 1.36 Estimat Glomerular Filtration 62 Rate Random Glucose 116 Calcium Level 8.9 Magnesium Level 2.3 Total Bilirubin 1.3 Aspartate Amino Transf 30 (AST/SGOT) Alanine Aminotransferase 20 (ALT/SGPT) Alkaline Phosphatase 51 Total Protein 8.2 Albumin 4.5 Salicylates Level LESS THAN 1.7 Urine Opiates Screen POS Acetaminophen Level LESS THAN 2.0 Urine Barbiturates Screen NEG Urine Amphetamines Screen NEG Urine Benzodiazepines Screen NEG Urine Cocaine Screen POS Urine Cannabinoids Screen POS Ethyl Alcohol Level LESS THAN 3 Result Diagram: 07/31/16 0059 07/31/16 0059 Assessment and Plan Problem List: (1) Withdrawal symptoms, alcohol ICD Code: F10.239 Status: Acute (2) Polysubstance abuse ICD Code: F19.10 Status: Acute (3) Acute kidney injury ICD Code: N17.9 Status: Acute Assessment and Plan Mr. Sullivan is an unfortunate 30 year old male with polysubstance abuse and alcohol withdrawal related seizure history who is admitted to the hospital for observation for alcohol withdrawal. Alcohol Withdrawal - CIWA protocol - seizure precautions - consult case management - discussed alcohol cessation at length with patient - Monitor vitals q4h - consult case management - nursing to notify MD prior to any AMA discharge - Thiamine supplementation Polysubstance abuse - IV heroin and cocaine - will need a drug treatment program as an outpatient Acute Kidney Injury - BUN 12, creatinine 1.36, estimated GFR 62 - Normal saline fluid boluses given in ER - Recheck BMP in a.m. and follow trends - Avoid nephrotoxins DVT prophylaxis - Heparin 5000 units subq q8h Discussed Condition With Dr. Kruse, RN, and patient Problem Qualifiers (1) Withdrawal symptoms, alcohol: Qualified Code: F10.239 - Withdrawal symptoms, alcohol, with unspecified complication Edith Jerez July 31, 2016 05:44
[2016-07-31 08:12] VITALS: BP 118/74; PULSE 56; RESP 17; TEMP 95.8; O2SAT 99
[2016-07-31] MEDS ORDERED: THIAMINE HCL 100 MG TAB PO SCH (09:00)
[2016-07-31] MEDS ORDERED: SODIUM CHLORIDE 0.9% FLUSH 10 ML FLUSH IV FLUSH SCH ×2 (09:00)
[2016-07-31] MEDS ORDERED: ONDANSETRON HCL 4 MG/2 ML VIAL IV PUSH PRN (10:00)
--- NOTE | 2016-07-31 10:38 | HHI.DCPOC ---
Discharge Care Plan Diagnosis: (1) Acute kidney injury (2) Polysubstance dependence Goals to Promote Your Health * To prevent worsening of your condition and complications * To maintain your health at the optimal level Directions to Meet Your Goals Take your medications as prescribed Follow your dietary instruction Follow activity as directed Keep your appointments as scheduled Take your immunizations and boosters as scheduled If your symptoms worsen call your PCP, if no PCP go to Urgent Care Center or Emergency Room Smoking is Dangerous to Your Health. Avoid second hand smoke Call the 24-hour hour crisis hotline for domestic abuse at Arcelia Flynn MD July 31, 2016 10:38
--- NOTE | 2016-07-31 13:32 | HHI.DS ---
Discharge Summary Admission Date July 31, 2016 at 03:27 Discharge Date: July 31, 2016 Admitting Diagnosis alcohol withdrawal syndrome (1) Withdrawal symptoms, alcohol ICD Code: F10.239 Diagnosis: Principal (2) Polysubstance abuse ICD Code: F19.10 Diagnosis: Principal (3) Acute kidney injury ICD Code: N17.9 Diagnosis: Principal Procedures none Brief History - From Admission Mr. Sullivan is a pleasant 30 year-old male with a history of polysubstance abuse including alcoholism, mood and personality disorders, and alcohol withdrawal related seizures who presented to the emergency department on 07/30/16 after leaving AGAINST MEDICAL ADVICE earlier in the day. He returned to the hospital complaining of nausea and vomiting accompanied by diarrhea. The patient is seen in his hospital room. He tells me he came to the hospital to get off drugs and alcohol and returned because of nausea and vomiting. He states that he left AGAINST MEDICAL ADVICE and went home to drink. He had 1 alcoholic drink and vomited almost immediately afterwards. He said he had diarrhea, diaphoresis and tremors and became concerned because he had had a seizure in JP[place] yesterday per patient - Poncho Thorne mentions a more tonic than clonic seizure lasting appx 2 mins reported to him from ER staff in his H&P dated 07/30/16. The patient believes he had urinary incontinence following this but Poncho' note states "the patient did not wet himself"l EEG done yesterday was negative. He reports having approximately one year of sobriety and states he relapsed about 3 months ago. He reports using IV heroin, IV cocaine, and alcohol. He states he can drink a 12 pack a day along with 2 tall malt liquor beers. He states he wants to get sober and go to a sober living facility. He denies any fevers, chills, shortness of breath, chest pain, or syncope. He denies any history of diabetes mellitus, hypertension, heart disease, respiratory disease, liver or kidney problems, thyroid disease, or cancer. He reports having a seizure one year ago during alcohol withdrawal but no other seizure activity in his lifetime. CBC/BMP: 07/31/16 0059 07/31/16 0059 Significant Findings Laboratory Tests Test 07/31/16 00:59 Urine Mucus FEW /lpf (OCC) Creatinine 1.36 MG/DL (0.60-1.30) Estimat Glomerular Filtration 62 ML/MIN (>89) Rate Random Glucose 116 MG/DL (74-106) Total Bilirubin 1.3 MG/DL (0.2-1.0) Salicylates Level LESS THAN 1.7 MG/DL (2.8-20.0) Urine Opiates Screen POS (NEG) Acetaminophen Level LESS THAN 2.0 MCG/ML (10.0-30.0) Urine Cocaine Screen POS (NEG) Urine Cannabinoids Screen POS (NEG) PE at Discharge GENERAL: in NAD. patient was sleeping in bed and awaken by me. SKIN: Warm and dry. HEAD: Normocephalic. EYES: No scleral icterus. No injection or drainage. NECK: Supple, trachea midline. No JVD or lymphadenopathy. CARDIOVASCULAR: Regular rate and rhythm without murmurs, gallops, or rubs. RESPIRATORY: Breath sounds equal bilaterally. No accessory muscle use. GASTROINTESTINAL: Abdomen soft, non-tender, nondistended. MUSCULOSKELETAL: No cyanosis, or edema. BACK: Nontender without obvious deformity. No CVA tenderness. NEURO: AAO X 3. NO TREMORS. Pt update on day of discharge f/u for ? alcohol withdrawal patient has no complaints. He stated he is doing well. denied any tremors. + some nausea . No emesis or abdominal pain. Hospital Course Mr. Sullivan is an unfortunate 30 year old male with polysubstance abuse and alcohol withdrawal related seizure history who is admitted to the hospital for observation for alcohol withdrawal. Alcohol Withdrawal - patient initially put on CIWA protocol but did not require much Ativan. - I did not observe any alcohol withdraw during his hospital course. -d/w case management and stated patient has to go to [facility] for any detox programs. d/w patient. Polysubstance abuse - IV heroin and cocaine -found positive on last admission but this admission now also positive marijuana. -patient wants detox but continues to use multiple substance. Acute Kidney Injury - IMPROVED. -continues to oral fluids. Pt Condition on Discharge: Good Discharge Disposition: Discharge Home Discharge Time: <= 30 minutes Discharge Instructions DIET: Follow Instructions for: As Tolerated, No Restrictions Activities you can perform: Regular-No Restrictions Follow up Referrals: PCP Follow-up - 1 Week Medication Profile: No Active Prescriptions or Reported Meds Arcelia Flynn MD July 31, 2016 13:32
[2016-07-31] MEDS ORDERED: HEPARIN SODIUM - SQ 10,000 UNITS/ML VIAL SQ SCH (14:00)
== END 2016-07-31 11:40 | disposition home or self-care (01) | DRG 897 ==
LOC: NEPE 21:14 → NEDA 07-31 03:27 → N05A 07-31 04:20
PROVIDERS: ADMIT Family Medicine; ATTEND Family Medicine
DX: F10.239 Alcohol dependence with withdrawal, unspecified (principal); F11.10 Opioid abuse, uncomplicated; N17.9 Acute kidney failure, unspecified; I10 Essential (primary) hypertension; F32.9 Major depressive disorder, single episode, unspecified; F41.9 Anxiety disorder, unspecified; G43.909 Migraine, unspecified, not intractable, without status migrainosus; F17.210 Nicotine dependence, cigarettes, uncomplicated; F60.9 Personality disorder, unspecified; F14.10 Cocaine abuse, uncomplicated
CPT/HCPCS: 80053; 80307; 81001; 83735; 85025; 96374; 96375; J2060; J2405; J3411; J7030

== ENCOUNTER 2016-08-01 01:22 | Emergency (ER) | payer OTHER ==
[~2016-08-01] VITALS: Ht 182.9 cm; Wt 75.0 kg
[2016-08-01 01:37] VITALS: BP 134/80; PULSE 87; RESP 17; TEMP 98.8; O2SAT 98
--- NOTE | 2016-08-01 01:38 | PD ---
HPI Chief Complaint: Psychiatric Symptoms Time Seen by Provider: 01:38 Travel History International Travel<30 days: No Contact w/Intl Traveler<30days: No Traveled to known affect area: No History of Present Illness HPI 30-year-old male with history of polysubstance abuse presents to emergency department under Bourne act for psychiatric evaluation. Patient states that he is clean today and no longer withdrawing and he has come to the realization that his entire world has fallen apart. He states that he has nothing worth living for. He "wants it all to end." States that he was going to lie down in traffic but his shame prevented him from doing this. He states that he has not used IV drugs for 2 days. He would like help with his depression. [facility] Past Medical History ADD: Yes Anxiety: Yes Depression: Yes Diminished Hearing: No Hypertension: Yes Neurologic: Yes Immunizations Current: Yes Migraines: Yes Seizures: Yes Social History Alcohol Use: Yes (FEW DAYS AGO) Tobacco Use: Yes Substance Use: Yes Allergies-Medications (Allergen,Severity, Reaction): Coded Allergies: No Known Allergies (Unverified , 08/01/16) Reported Meds & Prescriptions Reported Meds & Active Scripts Active No Active Prescriptions or Reported Medications Review of Systems Except as stated in HPI: all other systems reviewed are Neg Physical Exam Narrative GENERAL: Well-nourished male patient, ambulatory and in no acute distress SKIN: Focused skin assessment warm/dry. HEAD: Atraumatic. Normocephalic. EYES: Pupils equal and round. No scleral icterus. No injection or drainage. ENT: No nasal bleeding or discharge. Mucous membranes pink and moist. NECK: Trachea midline. No JVD. CARDIOVASCULAR: Regular rate and rhythm. No murmur appreciated. RESPIRATORY: No accessory muscle use. Clear to auscultation. Breath sounds equal bilaterally. GASTROINTESTINAL: Abdomen soft, non-tender, nondistended. Hepatic and splenic margins not palpable. MUSCULOSKELETAL: No obvious deformities. No clubbing. No cyanosis. No edema. NEUROLOGICAL: Awake and alert. No obvious cranial nerve deficits. Motor grossly within normal limits. Normal speech. Data Data Last Documented VS Vital Signs Date Time Temp Pulse Resp B/P Pulse Ox O2 Delivery O2 Flow Rate FiO2 08/01/16 01:37 98.8 87 17 134/80 98 Room Air Orders Psych Screen (08/01/16 01:33) MDM Medical Decision Making Medical Screen Exam Complete: Yes Emergency Medical Condition: Yes Medical Record Reviewed: Yes Differential Diagnosis Mood disorder versus personality disorder versus adjustment reaction disorder Narrative Course 30-year-old male presents to the emergency department under Bourne act for psychiatric evaluation. Patient was seen yesterday and lab work was complete with no acute abnormality. He has no acute medical complaints today. Patient is medically cleared to undergo psychiatric screening for further evaluation and disposition. Mental health screening discussed with the patient. Psychiatric screen ordered. Diagnosis Primary Impression: Adjustment disorder with depressed mood Additional Impression: Polysubstance abuse Scripts No Active Prescriptions or Reported Meds Condition: Stable Natalie García August 01, 2016 01:38
--- NOTE | 2016-08-01 09:12 | PD ---
History of Present Illness Chief Complaint: Psychiatric Symptoms Time Seen by Provider: 09:10 Travel History International Travel<30 Days: No Contact w/Intl Traveler<30days: No Known affected area: No Legal Status Legal Status: [place] History of Present Illness: History of Present Illness HPI 30-year-old male with history of polysubstance abuse presents to emergency department under [facility]anic for psychiatric evaluation. Patient states that he is clean today and no longer withdrawing and he has come to the realization that his entire world has fallen apart. He states that he has nothing worth living for. He "wants it all to end." States that he was going to lie down in traffic but his shame prevented him from doing this. He states that he has not used IV drugs for 2 days. He would like help with his depression. PFSH Past Medical History ADD: Yes Anxiety: Yes Depression: Yes Diminished Hearing: No Hypertension: Yes Neurologic: Yes Immunizations Current: Yes Migraines: Yes Seizures: Yes Psychiatric History Psychiatric History Hx Psychiatric Treatment: HX OF ADD, ANXIETY, PTSD AND DEPRESSION History of Inpatient Treatment: Yes Social History Hx Alcohol Use: Yes (FEW DAYS AGO) Hx Tobacco Use: Yes Hx Substance Use: Yes Substance Use Type: Alcohol, Crack, Marijuana, Prescription Medications, Benzos (Valium,Xanax), Heroin, Cocaine, Synth Opiates-Pain Pills Hx of Substance Use Treatment: Yes Allergies-Medications (Allergen,Severity, Reaction): Coded Allergies: No Known Allergies (Unverified , 08/01/16) Reported Meds & Prescriptions Reported Meds & Active Scripts Active No Active Prescriptions or Reported Medications MDM Orders Psych Screen (08/01/16 01:33) Diet As Tolerated (08/01/16 08:35) Diet Regular Basic (08/01/16 Breakfast) Results Vital Signs Date Time Temp Pulse Resp B/P Pulse Ox O2 Delivery O2 Flow Rate FiO2 08/01/16 01:37 98.8 87 17 134/80 98 Room Air Diagnosis Primary Impression: Adjustment disorder with depressed mood Additional Impression: Polysubstance abuse Prescriptions No Active Prescriptions or Reported Meds Condition: Stable Problem Qualifiers Brito,Trudi Corinna Holbrook [facility] August 01, 2016 09:12
[2016-08-01 11:56] LABS: AMPHETAMINE, URINE NEG (NEG); BARBITURATES, URINE NEG (NEG); COCAINE, URINE POS (NEG)
[2016-08-01 14:55] VITALS: BP 116/73; PULSE 91; RESP 18; TEMP 98.4; O2SAT 98
[2016-08-01 18:31] VITALS: BP 123/74; PULSE 80; RESP 18; TEMP 100.3; O2SAT 99
[2016-08-01 22:00] VITALS: BP 111/71; PULSE 78; RESP 17; O2SAT 99
[2016-08-02 02:16] VITALS: BP 120/76; PULSE 64; RESP 18; O2SAT 99
[2016-08-02 06:21] VITALS: BP 122/71; PULSE 70; RESP 18; O2SAT 98
[2016-08-02 11:15] VITALS: BP 129/94; PULSE 77; RESP 18; TEMP 98.7; O2SAT 98
--- NOTE | 2016-08-02 11:29 | PD ---
History of Present Illness Chief Complaint: Psychiatric Symptoms Time Seen by Provider: 10:45 Travel History International Travel<30 Days: No Contact w/Intl Traveler<30days: No Known affected area: No Legal Status Legal Status: Bourne Act Bourne Act Signed By: Darren Butler History of Present Illness: 30-year-old male repeatedly presenting to the emergency department with threats of self-harm. Patient has significant history of alcohol and substance abuse. Although his parents live in [place], he cannot return to them because he has "burned that bridge" and they are likely to call the police. Patient's girlfriend also left him due to his recent behavior, although he will not elaborate. Patient tearful when being interviewed by this physician and rather dramatic. When unaware of being observed, patient is on the phone and is not markedly upset. Patient apparently started using drugs and alcohol 2 months ago and has now become homeless, penniless, etc. He is trying to get himself into a detox program in [facility] but when questioned about his primary problem, the patient states it is not drugs. This physician feels the patient is significantly manipulative and avoiding his responsibility for taking drugs. It would be counter therapeutic to admit the patient to this psychiatric facility and we are not license for detox and rehabilitation. This physician is aware the patient may act out and actually do something to harm himself as a way of "showing" this physician that he needs admission. However, that is a chance we will have to take to not continue to enable his drug abuse behavior. Patient offered prescription for his former antidepressants, Prozac or Celexa. Patient also offered transportation to [facility]. PFSH Past Medical History ADD: Yes Anxiety: Yes Depression: Yes Diminished Hearing: No Hypertension: Yes Neurologic: Yes Immunizations Current: Yes Migraines: Yes Seizures: Yes Psychiatric History Psychiatric History Hx Psychiatric Treatment: HX OF ADD, ANXIETY, PTSD AND DEPRESSION-these histories are based on patient's self-report and this physician does not necessarily find them to be accurate. History of Inpatient Treatment: Yes Guns or firearms in home: No Social History Hx Alcohol Use: Yes (FEW DAYS AGO) Hx Tobacco Use: Yes Hx Substance Use: Yes Substance Use Type: Alcohol, Crack, Marijuana, Prescription Medications, Benzos (Valium,Xanax), Heroin, Cocaine, Synth Opiates-Pain Pills Hx of Substance Use Treatment: Yes Allergies-Medications (Allergen,Severity, Reaction): Coded Allergies: No Known Allergies (Unverified , 08/01/16) Reported Meds & Prescriptions Reported Meds & Active Scripts Active No Active Prescriptions or Reported Medications Review of Systems ROS Limitations: Poor Historian Except as stated in HPI: all other systems reviewed are Neg Exam Exam Limitations: Other: Alert: Yes [place]: Person, Place, Date, Situation Mood: Calm Affect: Appropriate Speech: Clear, Logical Eye Contact: Indirect Memory Intact: Immediate, Recent, Remote Suicidal: Plan, Ideation Insight/Judgement Adequate MDM Medical Decision Making Medical Record Reviewed: Yes Assessment/Plan This physician also spoke with the emergency department staff and other psychiatry physician. Everyone agrees the patient is at risk for acting out but he is also malingering and his primary diagnosis is polysubstance abuse and alcohol abuse. He remains this physician's opinion the patient should not be admitted to a psychiatric facility as this is a manipulation which will only encourage him to be more manipulative in the future. Orders Drug Screen, Random Urine (08/01/16 11:29) Diet Regular Basic (08/01/16 Dinner) Diet Regular Basic (08/02/16 Breakfast) Diet Regular Basic (08/02/16 Lunch) Results Vital Signs Date Time Temp Pulse Resp B/P Pulse Ox O2 Delivery O2 Flow Rate FiO2 08/02/16 06:21 70 18 122/71 98 Room Air 08/02/16 02:16 64 18 120/76 99 Room Air 08/01/16 22:00 78 17 111/71 99 Room Air 08/01/16 18:31 100.3 80 18 123/74 99 Room Air 08/01/16 14:55 98.4 91 18 116/73 98 Room Air Diagnosis Primary Impression: Polysubstance abuse Additional Impression: Alcohol abuse Prescriptions No Active Prescriptions or Reported Meds Condition: Stable Problem Qualifiers Constantin Ortez MD August 02, 2016 11:29
[2016-08-02 12:25] VITALS: BP 129/94; PULSE 77; RESP 18; O2SAT 98
== END 2016-08-02 14:17 | disposition home or self-care (01) ==
LOC: NEPD 01:22 → NEPJ 08-02 14:17
DX: F43.21 Adjustment disorder with depressed mood (principal); F19.10 Other psychoactive substance abuse, uncomplicated; F43.10 Post-traumatic stress disorder, unspecified; I10 Essential (primary) hypertension; R56.9 Unspecified convulsions; F10.10 Alcohol abuse, uncomplicated; Z72.0 Tobacco use; Z59.0 Homelessness
CPT/HCPCS: 80307; 99283